=== PATIENT | female | born 1960 | race Caucasian/White ===

== ENCOUNTER → 2017-01-28 | Outpatient (CLI) | payer BC ==
[~2017-01-28] MED LIST: CALC-586 PO; MULT-806 PO; OXYC1TAB PO; [UNRECOGNIZED DRUG - CODE] PO
--- NOTE | 2017-01-29 15:40 | NUR ---
OP MNT r/t mixed hyperlipidemia To: Dr Chen From: Nery Young RD, CDE Date: January 28, 2017 Patient: Mojgan Helms : 1960 Assessment: Jennifer came for MNT r/t hyperlipidemia and hypertriglyceridemia. Jennifer does not have other medical conditions or food allergies. She previously had heart burn, but states that since she avoids fried foods, she has no heart burn. For about 3 weeks, she has been on the Mediterranean, which is promises weight control, with little red meat, sugar, and saturated fat, and lots of produce, nuts, wine, olive oil, fish, and a moderate amount of eggs, cheese, and yogurt. She usually eats 3 meals a day (0900, 1300, 1800) about 1500 kcal daily. She drinks coffee & water. She takes no weight loss supplement. She lives with her and grandson, and they eat supper together. Jennifer states that she was eating the [place] diet, and [place] food and stopped eating fruit and vegetables because her doesnt, but admits it has not worked out so well for her. Pams favorite foods are sweet, including ice cream. Jennifer started to exercise 3 weeks ago, mostly resistance for bone density. She gained 30-35 lbs after she hurt her knee about 3 years ago, along with menopause. States that PCP wanted her to begin taking medication for mixed hyperlipidemia, but she does not like to take meds and wants to try to lose weight & eat a healthier diet. Her is on the Keto diet. Pertinent labs: TC 315; HDL 46; TG 317; LDL 206 Activity: resistance exercise, 1 hr, 4-5 times weekly; 5k walk 1-2 times monthly. Sleep: 7 hours, usually well-rested Ht: 56 wt: 188 lbs Nutrition Diagnosis: Food and nutrition knowledge deficit r/t mixed hyperlipidemia & weight loss as aeb labs, recent intake & patient report. Intervention: 1) Priority modifications: reviewed lab levels associated with heart health. a)Decreased SFA intake: Sources of Cholesterol and fat (ADA h/o); reviewed SFA and sources; discussed limiting intake b)increase monounsaturated fats: which is the focus of the Mediterranean diet; reviewed pathophysiology and sources for MUFA c)Increase soluble fiber intake: gave list of High Fiber foods (Escott-Stump); reviewed mechanism of action, and soluble fiber food sources in Mediterranean diet d)Increase activity: reviewed IOM/CDC exercise recommendation (h/o) for aerobic & resistance exercise; explained mechanism of action of aerobic exercise on increased HDL 2)Recommended modifications: a)for weight loss: 1200 kcal daily or 14 kcal /kg; suggested smaller portions at meals. M/E: by phone or appt, prn Thank you for your referral.
== END | disposition home or self-care (01) ==
LOC: MNT 13:25
PROVIDERS: ATTEND Family Medicine
DX: E78.2 Mixed hyperlipidemia (principal)
CPT/HCPCS: 97802